=== PATIENT | male | born 1970 | race African-American/Black ===

== ENCOUNTER → 2016-09-06 | Day surgery (SDC) | payer OTHER ==
[~2016-09-06] MED LIST: BACLOFEN10 MG PO; HUMALOG100 U/M2 SUBQ; LANTUS100 UNITS/ SUBQ; LISINOPRIL5 MG PO; METFORMIN HCL500 M1 PO
--- NOTE | ~2016-09-06 | OR ---
Unit #: [id number] #: [id number] Patient: ROSALIA TRINIDAD [id number] [address] [place], [place] [address] [id number] MR#: [id number] NAME: ROSALIA TRINIDAD ROOM: Date of Procedure: 09/06/2016 Admission Date: 09/06/2016 Surgeon: Berna Zuniga M.D. : 1970 Attending Physician: Berna Zuniga M.D. Primary Care Physician: Primary Care Physician No OPERATIVE REPORT PREOPERATIVE DIAGNOSIS Large angle alternating exotropia. POSTOPERATIVE DIAGNOSIS Large angle alternating exotropia. PROCEDURES PERFORMED Left lateral rectus resection, 10 mm and left medial rectus resection, 7 mm. ANESTHESIA General. COMPLICATIONS None. ESTIMATED BLOOD LOSS 1 mL. CLINICAL NURSING INSTRUCTOR Lorin Kennedy, surgical supply assistant. 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 He has never had prior eye surgery. He did not have diplopia. After discussing the risks, benefits and alternatives to surgery, including, but not limited to bleeding, infection, loss of vision, loss of eyes, suture reaction, retinal detachment, persistent deviation and diplopia, need for glasses and/or prism in his glasses, and return to the operating room, the patient agreed to proceed with strabismus repair of the left eye. DESCRIPTION OF PROCEDURE After the patient signed the informed consent, he was brought back to the operating suite and placed in supine position. Anesthesia was maintained under general. The left eye was prepped and draped in usual fashion for ocular surgery. Tegaderm was used to secure the lashes. A lid speculum was placed to keep the lids apart. Forced ductions were performed and were found to be negative. An inferotemporal fornix incision was made horizontally through the conjunctiva and vertically through the [place] Unit #: [id number] #: [id number] Patient: ROSALIA TRINIDAD capsule. A Gerber hook was used to engage the lateral rectus muscle. This was followed by series of Green hooks. Next, the conjunctival tenon layer was reflected over the toe of the Green hook. A small snip was made through the intermuscular septum and two Gerber hooks were placed through this space. The superior pole test was performed confirming identification of the superior insertion of the muscle. Next, the anterior septal attachments were bluntly dissected off. A 6-0 Vicryl suture with an S29 needle on each end was passed partial thickness, followed by locking bite on each end. The muscle was then disinserted from the globe using the Aebli scissors. The original insertion site was marked with two 0.5 locking forceps. Each needle was then passed back to the original insertion site in a V pattern. The muscle was brought all the way up. A knot was made 10 mm along the suture from the edge of the muscle and was allowed to hang back. Confirmation of the 10 mm recession was made using the caliper. The overlying conjunctiva was closed with one 6-0 plain gut stitch. Next, an inferonasal fornix incision was made horizontally to the conjunctiva and vertically to the [place] capsule. A Bam hook was used to engage the medial rectus muscle. This was followed by series of Green hooks. The conjunctival tenon layer was reflected over the toe of the green hook. A small snip was made to the intermuscular septum. Two Gerber hooks were placed through this space, and the superior pole test was performed confirming identification of the superior insertion of the medial rectus muscle. Next, anterior as well as the posterior septal attachments were bluntly dissected off. A central knot was made using a new 6-0 Vicryl suture with an S29 needle on each end, 7 mm along the tendinous portion of the muscle as a central bite. Each needle was then passed back, partial thickness followed by locking bite on each end. A hemostat was placed over the space. The muscle was disinserted from the globe using the Aebli scissors. The overlying muscle was resected and sent to Pathology. This area was cauterized along the hemostat. The hemostat was released and there was no bleeding. The muscle was inspected and was found to intact with its suture. Each needle was then passed back to the original insertion site twice in an anchoring technique. The muscle was brought all the way up and tied down. The needles were cut off. The overlying conjunctiva was closed with one 6-0 plain gut stitch. The eye was dressed with a few drops of Betadine 5%, followed by a drop of Vigamox and erythromycin ophthalmic ointment. The eye was covered with a patch and the patient was taken to recovery room, having tolerated the procedure well; however, during extubation, he started to cough and there was some bleeding that was found to soak into the patch. This was noted in the recovery room. The patch was removed and there was noted on the eye to be clotted blood, because he still was not fully awaken from his anesthesia. The eye was dressed with TobraDex ointment and covered with a new patch and as the patient wakes up, I will irrigate the eye and replace the patch. Dictated by... Brayan Navarro/cat TD: 09/06/2016 17:55 JOB #: [id number] Unit #: [id number] #: [id number] Patient: ROSALIA TRINIDAD OPERATIVE REPORT X X PROCEDURE OPERATIVE NOTE
--- NOTE | ~2016-09-06 | EKG ---
PATIENT: ROSALIA TRINIDAD UNIT #: [id number] Ventricular Rate: 84 BPM Atrial Rate: 84 BPM P-R Interval: 208 ms QRS Duration: 80 ms Q-T Interval: 350 ms QTC Calculation(Bezet): 413 ms P [place]: 42 degrees Calculated R [place]: 42 degrees Calculated T [place]: 17 degrees Diagnosis Line: Normal sinus rhythm Diagnosis Line: Possible Left atrial enlargement Diagnosis Line: Borderline ECG Diagnosis Line: No previous ECGs available Diagnosis Line: Confirmed by GIANLUCA WILEY MD ([id number]) on Diagnosis Line: 09/06/2016 12:08:17 PM INTERPRETING MD: DINA
== END | disposition home or self-care (01) ==
LOC: CSUR 06:56
DX: H50.15 Alternating exotropia (principal); E11.9 Type 2 diabetes mellitus without complications; I10 Essential (primary) hypertension; Z86.73 Personal history of transient ischemic attack (TIA), and cerebral infarction without residual deficits; Z79.899 Other long term (current) drug therapy; Z79.4 Long term (current) use of insulin; Z87.891 Personal history of nicotine dependence
CPT/HCPCS: 82947; 88302; 88313; 93005; J0131; J1100; J2250; J2405; J3010